=== PATIENT | male | born 1995 | race African-American/Black ===

== ENCOUNTER 2018-08-11 17:13 | Emergency (ER) | payer SELFPAY ==
--- NOTE | 2018-08-11 19:22 | RAD REPORT ---
EXAM DESCRIPTION: RAD - Knee Right 3 View - 08/11/2018 7:05 pm CLINICAL HISTORY: knee pain COMPARISON: Knee Right 3 View dated 02/07/2017 FINDINGS: No bone or joint abnormality is detected.
--- NOTE | 2018-08-11 19:34 | ER ---
Nurse's Notes [facility] Name: Jero Willingham Jr Age: 22 yrs Sex: Male : 1995 Arrival Date: 08/11/2018 Time: 17:17 Bed 20 Private MD: Diagnosis: Internal derangement of knee Presentation: 08/11 17:24 Presenting complaint: Patient states: i was working out when i heard a popped on my R hj knee; pain is 8/10; denies swelling;. Transition of care: patient was not received from another setting of care. Onset of symptoms was August 11, 2018. Risk Assessment: Do you want to hurt yourself or someone else? Patient reports no desire to harm self or others. Initial Sepsis Screen: Does the patient meet any 2 criteria? No. Patient's initial sepsis screen is negative. Does the patient have a suspected source of infection? No. Patient's initial sepsis screen is negative. Care prior to arrival: None. 17:24 Method Of Arrival: Ambulatory 17:24 Acuity: PADMINI 4 hj Triage Assessment: 17:26 General: Appears in no apparent distress. uncomfortable, Behavior is calm, cooperative, hj appropriate for age. Pain: Complains of pain in right knee. Historical: - Allergies: 17:25 No Known Allergies; hj - Home Meds: 17:25 None [Active]; hj - PMHx: 17:25 None; hj - PSHx: 17:25 None; hj - Immunization history:: Adult Immunizations not up to date. - Social history:: Smoking status: Patient/guardian denies using tobacco, Patient uses alcohol. - Ebola Screening: : Patient negative for fever greater than or equal to 101.5 degrees Fahrenheit, and additional compatible Ebola Virus Disease symptoms Patient denies exposure to infectious person Patient denies travel to an Ebola-affected area in the 21 days before illness onset. Screenin:25 Abuse screen: Denies threats or abuse. Denies injuries from another. Nutritional hj screening: No deficits noted. Tuberculosis screening: No symptoms or risk factors identified. Fall Risk None identified. Assessment: 18:12 General: Appears in no apparent distress. comfortable, Behavior is calm, cooperative, aj appropriate for age. Pain: Complains of pain in right leg and right knee. Neuro: Level of Consciousness is awake, alert, obeys commands, Oriented to person, place, time, situation, Appropriate for age. Respiratory: Airway is patent Respiratory effort is even, unlabored, Respiratory pattern is regular, symmetrical. Derm: Skin is intact, is healthy with good turgor, Skin is pink, warm \T\ dry. normal. Musculoskeletal: Range of motion: intact in all extremities, Swelling present in right knee Reports pain in right leg and right knee. 19:45 Reassessment: Patient appears in no apparent distress at this time. No changes from jd3 previously documented assessment. Patient and/or family updated on plan of care and expected duration. Pain level reassessed. Patient is alert, oriented x 3, equal unlabored respirations, skin warm/dry/pink. Vital Signs: 17:26 BP 168 / 96; Pulse 84; Resp 18; Temp 98.1(O); Pulse Ox 98% on R/A; Weight 124.74 kg; hj Height 5 ft. 11 in. (180.34 cm); Pain 8/10; 19:45 Pulse 85; Resp 16 S; Pulse Ox 98% on R/A; jd3 17:26 Body Mass Index 38.35 (124.74 kg, 180.34 cm) ED Course: 17:17 Patient arrived in ED. mr 17:25 Triage completed. 17:26 Arm band placed on left wrist. 17:26 Patient has correct armband on for positive identification. Bed in low position. Call light in reach. Side rails up X 1. 17:45 Jade Starr, RN is Primary Nurse. aj 17:50 Camron Gaming PA is PHCP. [facility] 17:50 Jason Hamm MD is Attending Physician. [facility] 18:12 No provider procedures requiring assistance completed. Patient did not have IV access aj during this emergency room visit. 19:05 Knee Right 3 View XRAY In Process Unspecified. EDMS 19:34 Yong Siddiqui MD is Referral Physician. [facility] Administered Medications: No medications were administered Outcome: 19:34 Discharge ordered by . [facility] 19:44 Discharged to home ambulatory, with family. jd3 19:44 Condition: stable 19:44 Discharge instructions given to patient, family, Instructed on discharge instructions, follow up and referral plans. medication usage, Demonstrated understanding of instructions, follow-up care, medications, Prescriptions given X 1. 19:46 Patient left the ED. jd3 Signatures: Dispatcher [employer] Jade Cunningham, NAVEED RN Camron Márquez PA PA jmm Rivera, Mary mr Teddy Goff RN RN Yony Nair RN RN jd3 Corrections: (The following items were deleted from the chart) 17:29 17:26 Pulse 84bpm; Resp 18bpm; Pulse Ox 98% RA; Temp 98.1F Oral; 124.74 kg; Height 5 hj ft. 11 in.; BMI: 38.3; Pain 8/10; hj
--- NOTE | 2018-08-11 19:34 | EDPHYS ---
Physician Documentation [facility] Name: Jero Willingham Jr Age: 22 yrs Sex: Male : 1995 Arrival Date: 08/11/2018 Time: 17:17 Bed 20 Private MD: ED Physician Jason Hamm HPI: 08/11 18:10 This 22 yrs old Black Male presents to ER via Ambulatory with complaints of Knee Pain. jmm 18:10 The patient presents with an injury, pain, that is acute. Onset: The symptoms/episode jmm began/occurred acutely, 1 day(s) ago. Modifying factors: The symptoms are alleviated by nothing. the symptoms are aggravated by nothing. This is a 22 year old male with no chronic medical conditions that presents to the ED with right knee pain after he felt a pop while jumping. Patient denies other injury. Historical: - Allergies: 17:25 No Known Allergies; hj - Home Meds: 17:25 None [Active]; hj - PMHx: 17:25 None; hj - PSHx: 17:25 None; hj - Immunization history:: Adult Immunizations not up to date. - Social history:: Smoking status: Patient/guardian denies using tobacco, Patient uses alcohol. - Ebola Screening: : Patient negative for fever greater than or equal to 101.5 degrees Fahrenheit, and additional compatible Ebola Virus Disease symptoms Patient denies exposure to infectious person Patient denies travel to an Ebola-affected area in the 21 days before illness onset. ROS: 18:10 Constitutional: Negative for fever, chills, and weight loss, Cardiovascular: Negative jmm for chest pain, palpitations, and edema, Respiratory: Negative for shortness of breath, cough, wheezing, and pleuritic chest pain. 18:10 MS/extremity: Positive for injury or acute deformity, laceration. 18:10 All other systems are negative. Exam: 18:10 Head/Face: atraumatic. Eyes: EOMI, no conjunctival erythema appreciated ENT: Moist jmm Mucus Membranes Neck: Trachea midline, Supple Chest/axilla: Normal chest wall appearance and motion. Cardiovascular: Regular rate and rhythm. No edema appreciated Respiratory: Normal respirations, no respiratory distress appreciated Abdomen/GI: Non distended, soft Back: Normal ROM 18:10 Constitutional: The patient appears in no acute distress, alert, awake. 18:10 Musculoskeletal/extremity: ROM: intact in all extremities, mild tenderness on palpation of the right patellar tendon, FROM appreciated, compartments are soft, NVI. 18:10 Skin: Appearance: Color: normal in color. 18:10 Neuro: Orientation: is normal, Mentation: is normal, Memory: is normal. 18:10 Psych: Behavior/mood is pleasant, cooperative. Vital Signs: 17:26 BP 168 / 96; Pulse 84; Resp 18; Temp 98.1(O); Pulse Ox 98% on R/A; Weight 124.74 kg; hj Height 5 ft. 11 in. (180.34 cm); Pain 8/10; 19:45 Pulse 85; Resp 16 S; Pulse Ox 98% on R/A; jd3 17:26 Body Mass Index 38.35 (124.74 kg, 180.34 cm) hj MDM: 18:08 Patient medically screened. [facility] 18:09 Data reviewed: vital signs, nurses notes. Counseling: I had a detailed discussion with [facility] the patient and/or guardian regarding: the historical points, exam findings, and any diagnostic results supporting the discharge/admit diagnosis. 19:33 Data reviewed: radiologic studies, plain films. Counseling: I had a detailed discussion [facility] with the patient and/or guardian regarding: radiology results, the need for outpatient follow up, to return to the emergency department if symptoms worsen or persist or if there are any questions or concerns that arise at home. 19:33 Data interpreted: Pulse oximetry: on room air is 98 %. Interpretation: normal. [facility] 08/11 18:08 Order name: Knee Right 3 View XRAY; Complete Time: 19:25 [facility] Administered Medications: No medications were administered Disposition: 08/12 09:55 Co-signature as Attending Physician, Jason Hamm MD. ma2 Disposition: 08/11/18 19:34 Discharged to Home. Impression: Internal derangement of knee. - Condition is Stable. - Discharge Instructions: Knee Pain. - Prescriptions for Ibuprofen 800 mg Oral Tablet - take 1 tablet by ORAL route every 8 hours As needed take with food; 30 tablet. - Medication Reconciliation Form, Thank You Letter, Antibiotic Education, Prescription Opioid Use, Work release form, Family Work Release form. - Follow up: Yong Siddiqui MD; When: 2 - 3 days; Reason: Recheck today's complaints, Continuance of care, Re-evaluation by your physician. Signatures: Dispatcher [employer] EDMS Camron Gaming PA PA jmm Joaquin, Henry, RN RN hj Davies, Jonathon, RN RN jJason Lyons MD MD ma2 Corrections: (The following items were deleted from the chart) 08/11 19:40 19:25 Knee Immobilizer ordered. saul kruse 19:46 19:34 08/11/2018 19:34 Discharged to Home. Impression: Internal derangement of knee. jd3 Condition is Stable. Forms are Medication Reconciliation Form, Thank You Letter, Antibiotic Education, Prescription Opioid Use. Follow up: Yong Siddiqui; When: 2 - 3 days; Reason: Recheck today's complaints, Continuance of care, Re-evaluation by your physician. saul
== END 2018-08-11 19:46 | disposition home or self-care (01) ==
LOC: ER 17:13
DX: M23.91 Unspecified internal derangement of right knee (principal); X58.XXXA Exposure to other specified factors, initial encounter; Y93.89 Activity, other specified; Y92.9 Unspecified place or not applicable
CPT/HCPCS: 99283

== ENCOUNTER 2019-05-22 19:37 | Emergency (ER) | payer SELFPAY ==
--- NOTE | 2019-05-22 20:53 | EDPHYS ---
Physician Documentation [facility] Name: Jero Willingham Jr Age: 23 yrs Sex: Male : 1995 Arrival Date: 05/22/2019 Time: 19:41 Bed 24 Private MD: MARCELINO Physician Federico Fontanez HPI: 05/22 20:46 This 23 yrs old Black Male presents to ER via Ambulatory with complaints of Ingrown noe toenail. 20:46 This 23 yrs old Black Male presents to ER via Ambulatory with complaints of Ingrown noe toenail. 20:46 The patient presents with pain, swelling, tenderness. The complaints affect the left noe foot, Left first toenail. Context: The problem was sustained at an unknown location. Onset: The symptoms/episode began/occurred 3 day(s) ago. Associated signs and symptoms: The patient has no apparent associated signs or symptoms. The patient has not experienced similar symptoms in the past. Historical: - Allergies: 19:49 No Known Allergies; ak1 - Home Meds: 19:49 None [Active]; ak1 - PMHx: 19:49 None; ak1 - PSHx: 19:49 None; ak1 - Immunization history:: Adult Immunizations unknown. - Social history:: Smoking status: Patient/guardian denies using tobacco. - Ebola Screening: : No symptoms or risks identified at this time. - Family history:: not pertinent. ROS: 20:46 MS/extremity: Positive for pain, swelling, tenderness, of the Left first toenail. noe 20:46 Constitutional: Negative for fever, chills, and weight loss, Eyes: Negative for injury, pain, redness, and discharge, ENT: Negative for injury, pain, and discharge, Neck: Negative for injury, pain, and swelling, Cardiovascular: Negative for chest pain, palpitations, and edema, Respiratory: Negative for shortness of breath, cough, wheezing, and pleuritic chest pain, Abdomen/GI: Negative for abdominal pain, nausea, vomiting, diarrhea, and constipation, Back: Negative for injury and pain, : Negative for injury, bleeding, discharge, and swelling, Skin: Negative for injury, rash, and discoloration, Neuro: Negative for headache, weakness, numbness, tingling, and seizure, Psych: Negative for depression, anxiety, suicide ideation, homicidal ideation, and hallucinations, Allergy/Immunology: Negative for hives, rash, and allergies, Endocrine: Negative for neck swelling, polydipsia, polyuria, polyphagia, and marked weight changes, Hematologic/Lymphatic: Negative for swollen nodes, abnormal bleeding, and unusual bruising. 20:46 MS/extremity: Positive for pain, swelling, tenderness, of the Left first toenail. Exam: 20:46 Constitutional: This is a well developed, well nourished patient who is awake, alert, noe and in no acute distress. Head/Face: Normocephalic, atraumatic. Eyes: Pupils equal round and reactive to light, extra-ocular motions intact. Lids and lashes normal. Conjunctiva and sclera are non-icteric and not injected. Cornea within normal limits. Periorbital areas with no swelling, redness, or edema. ENT: Nares patent. No nasal discharge, no septal abnormalities noted. Tympanic membranes are normal and external auditory canals are clear. Oropharynx with no redness, swelling, or masses, exudates, or evidence of obstruction, uvula midline. Mucous membranes moist. Neck: Trachea midline, no thyromegaly or masses palpated, and no cervical lymphadenopathy. Supple, full range of motion without nuchal rigidity, or vertebral point tenderness. No Meningismus. Chest/axilla: Normal chest wall appearance and motion. Nontender with no deformity. No lesions are appreciated. Cardiovascular: Regular rate and rhythm with a normal S1 and S2. No gallops, murmurs, or rubs. Normal PMI, no JVD. No pulse deficits. Respiratory: Lungs have equal breath sounds bilaterally, clear to auscultation and percussion. No rales, rhonchi or wheezes noted. No increased work of breathing, no retractions or nasal flaring. Abdomen/GI: Soft, non-tender, with normal bowel sounds. No distension or tympany. No guarding or rebound. No evidence of tenderness throughout. Back: No spinal tenderness. No costovertebral tenderness. Full range of motion. Male : Normal genitalia with no discharge or lesions. Skin: Warm, dry with normal turgor. Normal color with no rashes, no lesions, and no evidence of cellulitis. Neuro: Awake and alert, GCS 15, oriented to person, place, time, and situation. Cranial nerves II-XII grossly intact. Motor strength 5/5 in all extremities. Sensory grossly intact. Cerebellar exam normal. Normal gait. Psych: Awake, alert, with orientation to person, place and time. Behavior, mood, and affect are within normal limits. 20:46 Musculoskeletal/extremity: Extremities: decreased ROM, erythema, pain, swelling, tenderness, DVT Exam: No signs of deep vein thrombosis. no pain, no swelling, no tenderness, negative Homans' sign noted on exam, no appreciated bluish discoloration, no erythema, no increased warmth. Vital Signs: 19:49 BP 170 / 98; Pulse 87; Resp 18; Temp 98.1; Pulse Ox 99% on R/A; Weight 131.54 kg; ak1 Height 5 ft. 11 in. (180.34 cm); Pain 11/07; 21:47 BP 163 / 93; Pulse 80; Resp 18; Temp 98; Pulse Ox 100% on R/A; mg2 19:49 Body Mass Index 40.45 (131.54 kg, 180.34 cm) ak1 Procedures: 20:50 I \T\ D: Incision and drainage was performed for an abscess of the left Left first [facility] toenail Prepped with Betadine, Anesthetized with 4 ml's 1% Lidocaine. Incised with siccisors. Packed with xeroform gauze. Dressing: non-Adherent dressing, the patient tolerated the procedure well. MDM: 19:51 Patient medically screened. [facility] Administered Medications: 21:45 Drug: Marcaine (0.5 %) 10 ml {Note: by the provider.} Volume: 10 ml; Route: mg2 Infiltration; 21:45 Drug: Lidocaine (1 %) 1 amp Volume: 5 ml; Route: Infiltration; mg2 Disposition: 05/22/19 20:52 Discharged to Home. Impression: Ingrowing nail - revised. - Condition is Stable. - Discharge Instructions: Ingrown Toenail, Fingernail or Toenail Removal, Adult. - Prescriptions for Keflex 500 mg Oral Capsule - take 1 capsule by ORAL route every 6 hours for 7 days; 28 capsule. Tylenol- Codeine #3 300-30 mg Oral Tablet - take 2 tablets by ORAL route every 6 hours As needed; 20 tablet. - Medication Reconciliation Form, Thank You Letter, Antibiotic Education, Prescription Opioid Use form. - Follow up: Private Physician; When: 2 - 3 days; Reason: Recheck today's complaints, Continuance of care, Re-evaluation by your physician. Follow up: Tanner Dacosta DPM; When: 2 - 3 days; Reason: Recheck today's complaints, Re-evaluation by your physician. - Problem is new. - Symptoms have improved. Signatures: Federico Fontanez MD MD cha Krenek, Amber RN RN ak1 Fernando Arriaza RN RN mg2 Corrections: (The following items were deleted from the chart) 22:04 20:52 05/22/2019 20:52 Discharged to Home. Impression: Ingrowing nail - revised. mg2 Condition is Stable. Forms are Medication Reconciliation Form, Thank You Letter, Antibiotic Education, Prescription Opioid Use. Follow up: Private Physician; When: 2 - 3 days; Reason: Recheck today's complaints, Continuance of care, Re-evaluation by your physician. Follow up: Dr. Tanner Dacosta; When: 2 - 3 days; Reason: Recheck today's complaints, Re-evaluation by your physician. Problem is new. Symptoms have improved. noe
--- NOTE | 2019-05-22 20:53 | ER ---
Nurse's Notes [facility] Name: Jero Willingham Jr Age: 23 yrs Sex: Male : 1995 Arrival Date: 05/22/2019 Time: 19:41 Bed 24 Private MD: Diagnosis: Ingrowing nail-revised Presentation: 05/22 19:48 Presenting complaint: Patient states: left great toe pain with ingrown toenail X1.5 ak1 weeks [employer]. Transition of care: patient was not received from another setting of care. Onset of symptoms is unknown. Risk Assessment: Do you want to hurt yourself or someone else? Patient reports no desire to harm self or others. Initial Sepsis Screen: Does the patient meet any 2 criteria? No. Patient's initial sepsis screen is negative. Does the patient have a suspected source of infection? No. Patient's initial sepsis screen is negative. Care prior to arrival: None. 19:48 Method Of Arrival: Ambulatory ak1 19:48 Acuity: PADMINI 4 ak1 Triage Assessment: 19:49 General: Appears in no apparent distress. ak1 Historical: - Allergies: 19:49 No Known Allergies; ak1 - Home Meds: 19:49 None [Active]; ak1 - PMHx: 19:49 None; ak1 - PSHx: 19:49 None; ak1 - Immunization history:: Adult Immunizations unknown. - Social history:: Smoking status: Patient/guardian denies using tobacco. - Ebola Screening: : No symptoms or risks identified at this time. - Family history:: not pertinent. Screenin:49 Abuse screen: Denies threats or abuse. Denies injuries from another. Nutritional ak1 screening: No deficits noted. Tuberculosis screening: No symptoms or risk factors identified. Fall Risk None identified. Assessment: 20:18 General: Appears in no apparent distress. comfortable, Behavior is calm, cooperative. mg2 Pain: Complains of pain in left big toe Pain does not radiate. Pain currently is 2 out of 10 on a pain scale. Quality of pain is described as aching, Pain began gradually, 1.5 weeks ago Is intermittent. Neuro: Level of Consciousness is awake, alert, obeys commands, Oriented to person, place, time, situation. Cardiovascular: Capillary refill < 3 seconds Patient's skin is warm and dry. Respiratory: Airway is patent Respiratory effort is even, unlabored, Respiratory pattern is regular, symmetrical. GI: No signs and/or symptoms were reported involving the gastrointestinal system. : No signs and/or symptoms were reported regarding the genitourinary system. EENT: No signs and/or symptoms were reported regarding the EENT system. Derm: Skin is pink, warm \T\ dry. normal, Abscess located on left big toe. Musculoskeletal: Circulation, motion, and sensation intact. Capillary refill < 3 seconds, Swelling present in left big toe. 22:03 Reassessment: patient refused for post op shoe. mg2 Vital Signs: 19:49 BP 170 / 98; Pulse 87; Resp 18; Temp 98.1; Pulse Ox 99% on R/A; Weight 131.54 kg; ak1 Height 5 ft. 11 in. (180.34 cm); Pain /10; 21:47 BP 163 / 93; Pulse 80; Resp 18; Temp 98; Pulse Ox 100% on R/A; mg2 19:49 Body Mass Index 40.45 (131.54 kg, 180.34 cm) ak1 ED Course: 19:41 Patient arrived in ED. mr 19:48 Triage completed. ak1 19:49 Arm band placed on Patient placed in an exam room, on a stretcher, Patient notified of ak1 wait time. 19:51 Federico Fontanez MD is Attending Physician. noe 19:57 Fernando Arriaza, RN is Primary Nurse. mg2 20:07 Patient maintains SpO2 saturation greater than 95% on room air. jp3 20:08 Bed in low position. Call light in reach. Verbal reassurance given. Cardiac monitoring jp3 not applicable on this patient. 20:18 Patient did not have IV access during this emergency room visit. mg2 20:52 Tanner Dacosta DPM is Referral Physician. noe 21:46 Assist provider with I \T\ D: of an abscess on left paronychia/great toe Set up I\T\D tray. mg 2 Performed by Federico Fontanez MD Dressing with 4X4s, Patient tolerated well. Administered Medications: 21:45 Drug: Marcaine (0.5 %) 10 ml {Note: by the provider.} Volume: 10 ml; Route: mg2 Infiltration; 21:45 Drug: Lidocaine (1 %) 1 amp Volume: 5 ml; Route: Infiltration; mg2 Outcome: 20:52 Discharge ordered by . noe 22:03 Discharged to home ambulatory. mg2 22:03 Discharge instructions given to patient, Instructed on discharge instructions, follow up and referral plans. medication usage, wound care, Demonstrated understanding of instructions, follow-up care, medications, wound care, Prescriptions given X 2. 22:03 Condition: good mg2 22:04 Patient left the ED. mg2 Signatures: Federico Fontanez MD MD cha Rivera, Mary mr Diane Mora RN RN ak1 Fernando Arriaza RN RN mg2 Stef Rodarte jp3 Corrections: (The following items were deleted from the chart) 21:46 21:46 Assist provider with I \T\ D: of an abscess on left paronychia/great toe mg2 mg2 22:02 21:46 post op shoe applied to the left foot mg2 mg2
[2019-05-22] MEDS ORDERED: LIDOCAINE 1% MPF 5 ML VIAL ONE ×2 (20:55→21:48)
[2019-05-22] MEDS ORDERED: BUPIVACAINE 0.5% PF 10 ML VIAL ONE (20:55)
[2019-05-22] MEDS ORDERED: SILVER NITRATE 1 APPL TOP ONE (22:02)
== END 2019-05-22 22:04 | disposition home or self-care (01) ==
LOC: ER 19:37
PROC: 0J9R0ZZ Drainage of Left Foot Subcutaneous Tissue and Fascia, Open Approach (ICD-10-PCS; principal; 2019-05-22)
DX: L60.0 Ingrowing nail (principal)
CPT/HCPCS: 99284

== ENCOUNTER 2019-08-27 11:41 | Emergency (ER) | payer SELFPAY ==
[2019-08-27] MEDS ORDERED: IPRATROPIUM BROM 0.5MG/2.5ML ONE (12:45)
[2019-08-27] MEDS ORDERED: ALBUTEROL 2.5 MG/3 ML NEB SOL ONE (12:45)
--- NOTE | 2019-08-27 13:24 | RAD REPORT ---
EXAM DESCRIPTION: RAD - Chest Pa And Lat (2 Views) - 08/27/2019 1:18 pm CLINICAL HISTORY: Cough;Dyspnea Chest pain. COMPARISON: CHEST SINGLE VIEW dated 08/20/2013 FINDINGS: The lungs are clear. The heart is normal in size. No displaced fractures. IMPRESSION: No acute or concerning finding suspected.
--- NOTE | 2019-08-27 13:34 | EDPHYS ---
Physician Documentation [facility] Name: Jero Willingham Jr Age: 23 yrs Sex: Male : 1995 Arrival Date: 08/27/2019 Time: 11:43 Bed 27 Private MD: ED Physician Federico Fontanez HPI: 08/27 13:29 This 23 yrs old Black Male presents to ER via Ambulatory with complaints of Cough, kb Breathing Difficulty. 13:29 The patient has not experienced similar symptoms in the past. The patient has not kb recently seen a physician. 13:30 The patient has shortness of breath at rest. Onset: The symptoms/episode began/occurred kb 1 month(s) ago. Duration: The symptoms are continuous. The patient's shortness of breath is aggravated by nothing, is alleviated by nothing. Associated signs and symptoms: The patient has no apparent associated signs or symptoms. Severity of symptoms: At their worst the symptoms were mild moderate in the emergency department the symptoms are unchanged. Pt reports shortness of breath that started a month ago and has been getting progressively worse. Reports history of asthma, but hasn't used anything for that in a long time. Historical: - Allergies: 12:09 No Known Allergies; aa5 - Home Meds: 12:09 None [Active]; aa5 - PMHx: 12:12 Asthma; aa5 - PSHx: 12:09 None; aa5 - Immunization history:: Flu vaccine is not up to date. - Social history:: Smoking status: Patient/guardian denies using tobacco. - Ebola Screening: : No symptoms or risks identified at this time. ROS: 13:28 Constitutional: Negative for fever, chills, and weight loss, ENT: Negative for injury, kb pain, and discharge, Neck: Negative for injury, pain, and swelling, Cardiovascular: Negative for chest pain, palpitations, and edema, Abdomen/GI: Negative for abdominal pain, nausea, vomiting, diarrhea, and constipation, Back: Negative for injury and pain, MS/Extremity: Negative for injury and deformity, Skin: Negative for injury, rash, and discoloration, Neuro: Negative for headache, weakness, numbness, tingling, and seizure. 13:28 Respiratory: Positive for shortness of breath. Exam: 13:28 Constitutional: This is a well developed, well nourished patient who is awake, alert, kb and in no acute distress. Head/Face: Normocephalic, atraumatic. ENT: Nares patent. No nasal discharge, no septal abnormalities noted. Tympanic membranes are normal and external auditory canals are clear. Oropharynx with no redness, swelling, or masses, exudates, or evidence of obstruction, uvula midline. Mucous membranes moist. Neck: Trachea midline, no thyromegaly or masses palpated, and no cervical lymphadenopathy. Supple, full range of motion without nuchal rigidity, or vertebral point tenderness. No Meningismus. Chest/axilla: Normal chest wall appearance and motion. Nontender with no deformity. No lesions are appreciated. Cardiovascular: Regular rate and rhythm with a normal S1 and S2. No gallops, murmurs, or rubs. Normal PMI, no JVD. No pulse deficits. Respiratory: Lungs have equal breath sounds bilaterally, clear to auscultation and percussion. No rales, rhonchi or wheezes noted. No increased work of breathing, no retractions or nasal flaring. Abdomen/GI: Soft, non-tender, with normal bowel sounds. No distension or tympany. No guarding or rebound. No evidence of tenderness throughout. Back: No spinal tenderness. No costovertebral tenderness. Full range of motion. Skin: Warm, dry with normal turgor. Normal color with no rashes, no lesions, and no evidence of cellulitis. MS/ Extremity: Pulses equal, no cyanosis. Neurovascular intact. Full, normal range of motion. Neuro: Awake and alert, GCS 15, oriented to person, place, time, and situation. Cranial nerves II-XII grossly intact. Motor strength 5/5 in all extremities. Sensory grossly intact. Cerebellar exam normal. Normal gait. Vital Signs: 12:10 BP 172 / 94; Pulse 102; Resp 18 S; Temp 98.0(TE); Pulse Ox 98% on R/A; Weight 131.54 kg aa5 (R); Height 5 ft. 11 in. (180.34 cm) (R); Pain 0/10; 13:48 BP 150 / 78; Pulse 110; Resp 18; Temp 98.5(O); Pulse Ox 100% on R/A; mg2 12:10 Body Mass Index 40.45 (131.54 kg, 180.34 cm) aa5 MDM: 12:11 Patient medically screened. kb 13:29 Data reviewed: vital signs, nurses notes. Data interpreted: Pulse oximetry: on room air kb is 98 %. Interpretation: normal. 13:31 Counseling: I had a detailed discussion with the patient and/or guardian regarding: the kb historical points, exam findings, and any diagnostic results supporting the discharge/admit diagnosis, radiology results, the need for outpatient follow up, a family practitioner, to return to the emergency department if symptoms worsen or persist or if there are any questions or concerns that arise at home. 13:32 ED course: Pt reports symptoms are better after neb treatment. . kb 08/27 12:14 Order name: Chest Pa And Lat (2 Views) XRAY; Complete Time: 13:28 kb Administered Medications: 12:59 Drug: DuoNeb (3:1) (2.5 mg - 0.5 mg) 3 ml Route: Nebulizer; mg2 13:30 Follow up: Response: No adverse reaction; Marked relief of symptoms mg2 Disposition: 08/28 07:25 Co-signature as Attending Physician, Federico Fontanez MD I agree with the assessment and [facility] plan of care. Disposition: 08/27/19 13:33 Discharged to Home. Impression: Dyspnea. - Condition is Stable. - Discharge Instructions: Shortness of Breath, [id number], Asthma, Adult, [id number]. - Prescriptions for Albuterol Sulfate 90 mcg/actuation - inhale 1-2 puff by INHALATION route every 4-6 hours; 1 Inhaler. - Medication Reconciliation Form, Thank You Letter, Antibiotic Education, Prescription Opioid Use, Work release form form. - Follow up: Emergency Department; When: As needed; Reason: Worsening of condition. Follow up: Private Physician; When: 2 - 3 days; Reason: Recheck today's complaints, Continuance of care, Re-evaluation by your physician. Signatures: Dispatcher [employer] Estephania De La Fuente, HEALTHCARE ARCHITECT-C RAMIREZ-Federico Juarez MD MD cha Calderon, Audri, RN RN [email or web address] Fernando Arriaza RN RN mg2 Corrections: (The following items were deleted from the chart) 08/27 12:12 12:09 PMHx: None; aaАндрей curtis 13:52 13:33 08/27/2019 13:33 Discharged to Home. Impression: Dyspnea. Condition is Stable. mg2 Forms are Medication Reconciliation Form, Thank You Letter, Antibiotic Education, Prescription Opioid Use. Follow up: Emergency Department; When: As needed; Reason: Worsening of condition. Follow up: Private Physician; When: 2 - 3 days; Reason: Recheck today's complaints, Continuance of care, Re-evaluation by your physician. kb
--- NOTE | 2019-08-27 13:34 | ER ---
Nurse's Notes [facility] Name: Jero Willingham Jr Age: 23 yrs Sex: Male : 1995 Arrival Date: 08/27/2019 Time: 11:43 Bed 27 Private MD: Diagnosis: Dyspnea Presentation: 08/27 12:08 Presenting complaint: Patient states: SOB and cough that began 1 month ago. Transition aa5 of care: patient was not received from another setting of care. Onset of symptoms was July 2019. Risk Assessment: Do you want to hurt yourself or someone else? Patient reports no desire to harm self or others. Initial Sepsis Screen: Does the patient meet any 2 criteria? No. Patient's initial sepsis screen is negative. Does the patient have a suspected source of infection? No. Patient's initial sepsis screen is negative. Care prior to arrival: None. 12:08 Acuity: PADMINI 3 aa5 12:08 Method Of Arrival: Ambulatory aa5 Historical: - Allergies: 12:09 No Known Allergies; aa5 - Home Meds: 12:09 None [Active]; aa5 - PMHx: 12:12 Asthma; aa5 - PSHx: 12:09 None; aa5 - Immunization history:: Flu vaccine is not up to date. - Social history:: Smoking status: Patient/guardian denies using tobacco. - Ebola Screening: : No symptoms or risks identified at this time. Screenin:33 Abuse screen: Denies threats or abuse. Denies injuries from another. Nutritional mg2 screening: No deficits noted. Tuberculosis screening: No symptoms or risk factors identified. Fall Risk None identified. Assessment: 13:00 General: Appears in no apparent distress. comfortable, Behavior is calm, cooperative. mg2 Pain: Denies pain. Neuro: Level of Consciousness is awake, alert, obeys commands, Oriented to person, place, time, situation. Cardiovascular: Rhythm is regular. 13:00 Respiratory: Airway is patent Respiratory effort is even, unlabored, Breath sounds with mg2 wheezes bilaterally. in mediastinum, right upper lobe and left upper lobe. Respiratory: Reports shortness of breath cough that is. GI: No signs and/or symptoms were reported involving the gastrointestinal system. : No signs and/or symptoms were reported regarding the genitourinary system. EENT: No signs and/or symptoms were reported regarding the EENT system. Derm: Skin is intact, is healthy with good turgor, Skin is pink, warm \T\ dry. normal. Musculoskeletal: Circulation, motion, and sensation intact. Capillary refill < 3 seconds. Vital Signs: 12:10 BP 172 / 94; Pulse 102; Resp 18 S; Temp 98.0(TE); Pulse Ox 98% on R/A; Weight 131.54 kg aa5 (R); Height 5 ft. 11 in. (180.34 cm) (R); Pain 0/10; 13:48 BP 150 / 78; Pulse 110; Resp 18; Temp 98.5(O); Pulse Ox 100% on R/A; mg2 12:10 Body Mass Index 40.45 (131.54 kg, 180.34 cm) aa5 ED Course: 11:43 Patient arrived in ED. jg7 12:08 Arm band placed on. aa5 12:09 Triage completed. aa5 12:11 Estephania Ledezma FNP-C is [facility]. kb 12:11 Federico Fontanez MD is Attending Physician. kb 12:42 Fernando Arriaza, NAVEED is Primary Nurse. mg2 13:18 Chest Pa And Lat (2 Views) XRAY In Process Unspecified. EDMS 13:33 Patient has correct armband on for positive identification. mg2 13:33 No provider procedures requiring assistance completed. Patient did not have IV access mg2 during this emergency room visit. Administered Medications: 12:59 Drug: DuoNeb (3:1) (2.5 mg - 0.5 mg) 3 ml Route: Nebulizer; mg2 13:30 Follow up: Response: No adverse reaction; Marked relief of symptoms mg2 Outcome: 13:33 Discharge ordered by . kb 13:47 Discharged to home ambulatory, with family. mg2 13:47 Condition: stable 13:47 Discharge instructions given to patient, family, Instructed on discharge instructions, follow up and referral plans. medication usage, Demonstrated understanding of instructions, follow-up care, medications, Prescriptions given X 1. 13:52 Patient left the ED. mg2 Signatures: Dispatcher [employer] EDMS Estephania Ledezma FNP-C FNP-Ckb Calderon, Audri, RN RN aa5 Fernando Arriaza RN RN mg2 Hilda Sorto jg7 Corrections: (The following items were deleted from the chart) 12:12 12:09 PMHx: None; aa5 aa5 12:12 12:10 Pulse 102bpm; Resp 18bpm; Spontaneous; Pulse Ox 98% RA; Temp 98.0F Temporal; aa5 131.54 kg Reported; Height 5 ft. 11 in. Reported; BMI: 40.4; Pain 0/10; aa5
[2019-08-27 13:58] VITALS: BP 150/78; TEMP 98.5; O2SAT 100
== END 2019-08-27 13:52 | disposition home or self-care (01) ==
LOC: ER 11:41
DX: R06.00 Dyspnea, unspecified (principal)
CPT/HCPCS: 71046; 94640; 99284

== ENCOUNTER 2021-11-07 09:54 | Emergency (ER) | payer BC, SELFPAY ==
--- NOTE | 2021-11-07 11:24 | RAD REPORT ---
EXAM DESCRIPTION: [place] Single View11/07/2021 11:00 am CLINICAL HISTORY: Chest pain COMPARISON: 2018 FINDINGS: The lungs appear clear of acute infiltrate. The heart is normal size IMPRESSION: No acute abnormalities displayed
[2021-11-07 11:28] LABS: Absolute Lymphocytes (CBC) 2.5 K/uL (0.7-4.9); Hematocrit 42.3 % (39.6-49.0); MPV 7.4 fL (7.6-11.3); RBC Red Blood Cell Count 5.05 M/uL (4.33-5.43)
[2021-11-07 11:44] LABS: BUN Blood Urea Nitrogen 13 mg/dL (7-18); Bicarbonate 25 mmol/L (21-32); Glucose Level 123 mg/dL (74-106); Sodium Level 137 mmol/L (136-145); Troponin (Emerg Dept Use Only) < 0.02 ng/mL (0.0-0.045)
--- NOTE | 2021-11-07 11:59 | ER ---
Nurse's Notes [facility] Name: Jero Willingham Jr Age: 26 yrs Sex: Male : 1995 Arrival Date: 11/07/2021 Time: 09:57 Bed 30 Private MD: Diagnosis: Chest pain, unspecified;Essential (primary) hypertension Presentation: 11/07 10:03 Chief complaint: Patient states: He wants to get checked out because he has been told ll3 he has high blood pressure, pt states having chest pain since yesterday morning. Coronavirus screen: At this time, the client does not indicate any symptoms associated with coronavirus-19. Ebola Screen: No symptoms or risks identified at this time. Initial Sepsis Screen: Does the patient meet any 2 criteria? No. Patient's initial sepsis screen is negative. Does the patient have a suspected source of infection? No. Patient's initial sepsis screen is negative. Risk Assessment: Do you want to hurt yourself or someone else? Patient reports no desire to harm self or others. Onset of symptoms was November 06, 2021. 10:03 Method Of Arrival: Ambulatory ll3 10:03 Acuity: PADMINI 3 ll3 Triage Assessment: 10:05 General: Appears in no apparent distress. comfortable, Behavior is calm, cooperative. ll3 Pain: Complains of pain in mid-sternal area Pain radiates to back Pain currently is 5 out of 10 on a pain scale. Historical: - Allergies: 10:05 No Known Allergies; ll3 - PMHx: 10:05 Asthma; Hypertensive disorder; ll3 - Immunization history:: Client reports receiving the 2nd dose of the Covid vaccine. - Social history:: Smoking status: Patient denies any tobacco usage or history of. Screenin:36 Abuse screen: Denies threats or abuse. Denies injuries from another. Nutritional ic1 screening: No deficits noted. Tuberculosis screening: No symptoms or risk factors identified. Fall Risk None identified. Exposure risk/Travel Screening: None identified. Assessment: 11:36 General: Appears in no apparent distress. comfortable, Behavior is calm, cooperative. ic1 Pain: Denies pain. Neuro: No deficits noted. Cardiovascular: Reports chest pain, since Occasionally, but not currently. Denies headache. States he was told he had htn when he was 16, but has never been medicated. Pt denies weakness, fatigue, and disorientation. Respiratory: No deficits noted. GI: No deficits noted. : No deficits noted. EENT: No deficits noted. Derm: No deficits noted. Musculoskeletal: No deficits noted. Vital Signs: 10:03 BP 179 / 125; Pulse 112; Resp 15; Temp 97.0(TE); Pulse Ox 100% on R/A; Weight 151.95 kg ll3 (R); Height 5 ft. 11 in. (180.34 cm) (R); Pain 5/10; 11:22 BP 190 / 94; Pulse 106; Pulse Ox 99% ; tp1 11:36 BP 164 / 94; Pulse 103; Resp 20; Pulse Ox 100% on R/A; ic1 10:03 Body Mass Index 46.72 (151.95 kg, 180.34 cm) ll3 Vitals: 11:36 Cardiac Rhythm Assessment Sinus tach. ic1 ED Course: 09:57 Patient arrived in ED. ds1 10:05 Triage completed. ll3 10:05 Arm band placed on Patient placed in an exam room. ll3 10:10 Estephania Ledezma FNP-C is PHCP. kb 10:10 Nir Harris MD is Attending Physician. kb 11:00 Chest Single View XRAY In Process Unspecified. EDMS 11:10 Inserted saline lock: 20 gauge in right antecubital area, using aseptic technique. tp1 Blood collected. 11:11 Troponin (emerg Dept Use Only) Sent. tp1 11:11 Basic Metabolic Panel Sent. tp1 11:11 Initial lab(s) drawn, by nm, sent to lab. tp1 11:11 EKG done, by ED staff. tp1 11:36 Patient has correct armband on for positive identification. Bed in low position. Call ic1 light in reach. Side rails up X2. Administered Medications: No medications were administered Outcome: 11:59 Discharge ordered by . kb 12:08 Discharged to home ambulatory. ic1 12:08 Condition: stable 12:08 Discharge instructions given to patient, Instructed on discharge instructions, follow up and referral plans. Demonstrated understanding of instructions, follow-up care, medications, Prescriptions given X 2. 12:11 Patient left the ED. jh5 Signatures: Dispatcher [employer] EDMS Estephania Ledezma FNP-C FNP-Ckb Sanford, Demi ds1 Hilda Brown, RN RN jh5 Vj Coronado, RN RN ll3 Gely Tomlin tp1 Blanche Mcgarry, RN RN ic1
--- NOTE | 2021-11-07 12:00 | EDPHYS ---
Physician Documentation [facility] Name: Jero Willingham Jr Age: 26 yrs Sex: Male : 1995 Arrival Date: 11/07/2021 Time: 09:57 Bed 30 Private MD: ED Physician Nir Harris HPI: 11/07 10:56 This 26 yrs old Black Male presents to ER via Ambulatory with complaints of Chest Pain. kb 10:56 The patient or guardian reports chest pain that is located primarily in the substernal kb area. The pain does not radiate. Associated signs and symptoms: Pertinent positives: HTN, Pertinent negatives: dizziness, lightheadedness, nausea, palpitations, shortness of breath. The chest pain is described as dull. Duration: The patient or guardian reports a single episode. Modifying factors: The symptoms are alleviated by nothing. the symptoms are aggravated by nothing. Severity of pain: At its worst the pain was mild moderate in the emergency department the pain is unchanged. The patient has not experienced similar symptoms in the past. The patient has not recently seen a physician. Pt states he came in because his blood pressure was high. States he has had pain to center of chest for 2 days. Denies any other symptoms. States he has a history of hypertension, but does not take anything for it. . Historical: - Allergies: 10:05 No Known Allergies; ll3 - PMHx: 10:05 Asthma; Hypertensive disorder; ll3 - Immunization history:: Client reports receiving the 2nd dose of the Covid vaccine. - Social history:: Smoking status: Patient denies any tobacco usage or history of. ROS: 10:56 Constitutional: Negative for fever, chills, and weight loss. kb 10:56 Cardiovascular: Positive for chest pain, Negative for edema, orthopnea, palpitations, paroxysmal nocturnal dyspnea. 10:56 All other systems are negative. Exam: 10:56 Constitutional: This is a well developed, well nourished patient who is awake, alert, kb and in no acute distress. Head/Face: Normocephalic, atraumatic. ENT: Moist Mucous membranes Cardiovascular: Regular rate and rhythm with a normal S1 and S2. No gallops, murmurs, or rubs. No pulse deficits. Respiratory: Respirations even and unlabored. No increased work of breathing. Talking in full sentences Skin: Warm, dry with normal turgor. Normal color. MS/ Extremity: Pulses equal, no cyanosis. Neurovascular intact. Full, normal range of motion. Neuro: Awake and alert, GCS 15, oriented to person, place, time, and situation. Moves all extremities. Normal gait. Psych: Awake, alert, with orientation to person, place and time. Behavior, mood, and affect are within normal limits. Vital Signs: 10:03 BP 179 / 125; Pulse 112; Resp 15; Temp 97.0(TE); Pulse Ox 100% on R/A; Weight 151.95 kg ll3 (R); Height 5 ft. 11 in. (180.34 cm) (R); Pain 5/10; 11:22 BP 190 / 94; Pulse 106; Pulse Ox 99% ; tp1 11:36 BP 164 / 94; Pulse 103; Resp 20; Pulse Ox 100% on R/A; ic1 10:03 Body Mass Index 46.72 (151.95 kg, 180.34 cm) ll3 MDM: 10:10 Patient medically screened. kb 10:54 Data reviewed: vital signs, nurses notes. Data interpreted: Pulse oximetry: on room air kb is 100 %. Interpretation: normal. 11:59 Counseling: I had a detailed discussion with the patient and/or guardian regarding: the kb historical points, exam findings, and any diagnostic results supporting the discharge/admit diagnosis, lab results, radiology results, the need for outpatient follow up, a family practitioner, to return to the emergency department if symptoms worsen or persist or if there are any questions or concerns that arise at home. 11/07 10:17 Order name: Troponin (emerg Dept Use Only); Complete Time: 11:46 kb 11/07 10:17 Order name: CBC with Diff; Complete Time: 11:46 kb 11/07 10:17 Order name: Chest Single View XRAY; Complete Time: 11:29 kb 11/07 10:17 Order name: Basic Metabolic Panel; Complete Time: 11:46 kb 11/07 10:17 Order name: EKG; Complete Time: 10:18 kb 11/07 10:17 Order name: EKG - Nurse/Tech; Complete Time: 11:11 kb 11/07 10:17 Order name: IV Start; Complete Time: 11:11 kb 11/07 10:24 Order name: Recheck B/P; Complete Time: 11:31 kb Administered Medications: No medications were administered Disposition: 13:13 Co-signature as Attending Physician, Nir Harris MD I agree with the assessment and rn plan of care. Attestation: The patient's history, exam findings, diagnostics, and a summary of any interventions or procedures was reviewed in detail with Estephania SANTACRUZ. Disposition Summary: 11/07/21 11:59 Discharge Ordered Location: Home kb Condition: Stable kb Diagnosis - Chest pain, unspecified kb - Essential (primary) hypertension kb Followup: kb - With: Emergency Department - When: As needed - Reason: Worsening of condition Followup: kb - With: Private Physician - When: 2 - 3 days - Reason: Recheck today's complaints, Continuance of care, Re-evaluation by your physician Discharge Instructions: - Discharge Summary Sheet kb - Nonspecific Chest Pain, Adult, [id number] kb - Hypertension, Adult, [id number] kb Forms: - Medication Reconciliation Form kb - Thank You Letter kb - Antibiotic Education kb - Prescription Opioid Use kb Prescriptions: - Hydrochlorothiazide 25 mg Oral Tablet - take 1 tablet by ORAL route once daily .; 30 tablet; Refills: 0, Product kb Selection Permitted Signatures: Dispatcher [employer] EDMS Estephania Ledezma, NOAM RYANP-Nir Zavala MD MD rn Loubet, Lynsea, RN RN ll3
[2021-11-07 12:17] VITALS: TEMP 97
[2021-11-07 12:24] VITALS: BP 164/94; O2SAT 100
--- NOTE | 2021-11-09 07:53 | EKG ---
Test Date: 2021-11-07 Test Time: 11:16:30 Commercial Decorator: MBB MEASUREMENT RESULTS: Intervals: Rate: 104 NJ: 138 QRSD: 80 QT: 340 QTc: 447 [place]: P: 54 NJ: 138 QRS: 69 T: -3 INTERPRETIVE STATEMENTS: Sinus tachycardia Septal infarct, age undetermined Abnormal ECG No previous ECG available for comparison Electronically Signed On 11-09-21 07:46:19 DIRECTOR OF UNDERGRADUATE ADMISSIONS by Darrell Prakash
== END 2021-11-07 12:11 | disposition home or self-care (01) ==
LOC: ER 09:54
DX: R07.9 Chest pain, unspecified (principal); I10 Essential (primary) hypertension
CPT/HCPCS: 36415; 71045; 80048; 84484; 85025; 93005; 99284

== ENCOUNTER 2022-02-20 11:39 | Emergency (ER) | payer BC, SELFPAY ==
--- OUTSIDE RECORDS SUMMARY | 2022-02-20 11:43 | XMS REPORT | Continuity of Care Document ---
:1995 Author Organization [facility] t Address [address] [place] [address] [address] [place] [address] Care Team Providers Name Role Phone Unavailable Unavailable Unavailable Problems This patient has no known problems. Allergies, Adverse Reactions, Alerts This patient has no known allergies or adverse reactions. Medications This patient has no known medications. Procedures This patient has no known procedures. Results Test Description Test Time Test Comments Results Result Comments Source SARS-CoV-2 (COVID-19), RT-PCR/TMA 2021-11-19 12:50:25 Test Item Value Reference Range Interpretation Comme nts SARS-CoV-2 INTERPRETATION POSITIVE SEE NOTE A S ARS-CoV-2 RNA DETECTEDPositive (test code = 56087) results are indicative of the presence of TOMI S-CoV-2 RNA;clinical co rrelation with patient history and other diagnosticinfor mation is necessary to de termine patient infection statu s.Positive results do not rule out bacterial infection or co -infectionwith other viruses. Positive and negative predic tive values oftesting are h ighly dependent on prevalence. SOURCE (test code = 00562) NOT SPECIFIED Note: Methodology is Keo Luis Eduardo Real-Time RT-PC R. The expected result or ref erence range is NEGATIVE (Not D etected). For more information reg arding COVID-19 testing to incl ude clinicalinforma tion, methodology detail, intende d use, FDA authorization a ndrecommended fact sheets for ted ents or healthcare providers, see NewTest Announcement: S ARS-CoV-2 (COVID-19) by N AAT at URL below (note,fact shee ts are provided by method given in report:https:// www.[employer]/cl inicians/client -communications/ Alternatively, see downloadable PDF fact sheet at:https://www. cpllabs.com/COVID- 19-RT-PCR UNLESS OTHERWISE INDICATED, ALL TESTING PERFORMED ATCLINICAL PATH [facility] [employer] [address] [place] [address] 4 LABORATORY DIRE CTOR: Kendell DUMONT NUMBER [id number] [place]. [id number] SARS-CoV-2 (COVID-19), RT-PCR/[id number] 17:21:35 Test Item Value Reference Interpretation Comments Range SARS-CoV-2 POSITIVE SEE NOTE A SARS-CoV-2 RNA INTERPRETATION DETECTEDPosit chadwick results (test code = [place] the [address]) presence of TOMI S-CoV-2 RNA;clinical co rrelation with patient hi story and other diagnosticinfor mation is necessary to de termine patient infecti on status.Positive results do not rule out bacterial infec tion or co-infectionwit h other viruses. Positi ve and negative predic tive values oftestin g are highly dependen t on prevalence. SOURCE (test code NASOPHARYNGEAL Note: M ethodology is = 83633) Keo Luis Eduardo Gi l-Time RT-PCR. The exp ected result or refe rence range is NEGATI VE (Not Detected). For more information reg arding COVID-19 testin g to include clinicalinforma tion, methodology det ail, intended use, F DA authorization andrecommended fact sheets for ted ents or healthcare prov iders, see NewTest Announcement: S ARS-CoV-2 (COVID-19) by N AAT at URL below (note ,fact sheets are prov ided by method given in report:https:// [email or web address]/[email or web address] [email or web address] -communications / Alternatively, see downloadable PD F fact sheet at:https://www. [employer].c om/LQZMN-58-HJ- PCR UNLESS OTHERWIS E INDICATED, ALL TESTING PERFORMED [facility] NICAL PATHOLOG[facility] [address] [place] [address] 4 LABORATORY DIR NATACHA: Kendell EARLYIA NUMBER [id number] CAP ACCREDITATION N O. [id number]
[2022-02-20 12:37] LABS: Absolute Lymphocytes (CBC) 2.6 K/uL (0.7-4.9); Lymphocytes % 29.4 % (15.3-44.8); RBC Red Blood Cell Count 4.96 M/uL (4.33-5.43)
[2022-02-20] MEDS ORDERED: hydroCHLOROthiazide 25 MG TAB ONE (12:38)
[2022-02-20 12:51] LABS: Potassium 3.9 mmol/L (3.5-5.1); Troponin High Sensitivity 5.8 pg/mL (<58.9)
[2022-02-20] MEDS ORDERED: HYDRALAZINE HCL 20 MG/ML VIAL ONE (13:42)
[2022-02-20] MEDS ORDERED: cloNIDine HCL 0.1 MG TAB ONE (14:12)
--- NOTE | 2022-02-20 14:42 | ER ---
Nurse's Notes [facility] Name: Jero Willingham Jr Age: 26 yrs Sex: Male : 1995 Arrival Date: 02/20/2022 Time: 11:42 Bed 11 Private MD: Diagnosis: Elevated blood-pressure reading, without diagnosis of hypertension Presentation: 02/20 11:53 Chief complaint: Patient states: ran out of BP meds last month, was taking iw hydrochlorothiazide , today he went to do a drug test for a job and was told hi BP was high and needed to get seen by a doctor. Coronavirus screen: At this time, the client does not indicate any symptoms associated with coronavirus-19. Ebola Screen: Patient negative for fever greater than or equal to 101.5 degrees Fahrenheit, and additional compatible Ebola Virus Disease symptoms Patient denies exposure to infectious person. Patient denies travel to an Ebola-affected area in the 21 days before illness onset. No symptoms or risks identified at this time. Initial Sepsis Screen: Does the patient meet any 2 criteria? No. Patient's initial sepsis screen is negative. Does the patient have a suspected source of infection? No. Patient's initial sepsis screen is negative. Risk Assessment: Do you want to hurt yourself or someone else? Patient reports no desire to harm self or others. Onset of symptoms was February 20, 2022. 11:53 Method Of Arrival: Ambulatory iw 11:53 Acuity: PADMINI 3 iw Historical: - Allergies: 11:56 No Known Allergies; iw - PMHx: 11:52 Asthma; Hypertensive disorder; iw Screenin:11 Abuse screen: Denies threats or abuse. Denies injuries from another. Nutritional iw screening: No deficits noted. Tuberculosis screening: No symptoms or risk factors identified. Fall Risk IV access (20 points). Assessment: 13:11 Reassessment: Patient appears in no apparent distress at this time. Patient and/or iw family updated on plan of care and expected duration. Pain level reassessed. Patient is alert, oriented x 3, equal unlabored respirations, skin warm/dry/pink. 13:43 Reassessment: Patient appears in no apparent distress at this time. Patient and/or iw family updated on plan of care and expected duration. Pain level reassessed. Patient is alert, oriented x 3, equal unlabored respirations, skin warm/dry/pink. Vital Signs: 11:52 BP 160 / 113; Pulse 92; Resp 18; Temp 97.4; Pulse Ox 99% on R/A; iw 12:58 BP 156 / 106; iw 13:32 BP 154 / 128 LA Supine (man/reg); dh4 13:43 BP 156 / 105; iw ED Course: 11:42 Patient arrived in ED. am2 11:46 Nir Harris MD is Attending Physician. rn 11:54 Triage completed. iw 11:58 Camron Gaming PA is PHCP. [facility] 11:58 Nir Harris MD is Attending Physician. [facility] 12:09 Mylene Lozada RN is Primary Nurse. iw 12:30 Inserted saline lock: 20 gauge in right antecubital area, using aseptic technique. dh4 Blood collected. 13:11 Patient has correct armband on for positive identification. iw Administered Medications: 12:38 Drug: Hydrochlorothiazide 25 mg Route: PO; iw 13:43 Drug: hydrALAZINE 5 mg Route: IVP; Site: right antecubital; iw 14:10 Drug: cloNIDine 0.1 mg Route: PO; iw Outcome: 14:41 Discharge ordered by . [facility] 14:57 Patient left the ED. iw Signatures: Camron Gaming PA PA [facility] Mylene Lozada RN RN Nir Harris MD MD rn Moreno, Amanda [facility] Tom Snyder 4 Corrections: (The following items were deleted from the chart) 11:53 11:52 Pulse 92bpm; Resp 18bpm; Pulse Ox 99% RA; Temp 97.4F; iw iw
--- NOTE | 2022-02-20 14:42 | EDPHYS ---
Physician Documentation [facility] Name: Jero Willingham Jr Age: 26 yrs Sex: Male : 1995 Arrival Date: 02/20/2022 Time: 11:42 Bed 11 Private MD: ED Physician Nir Harris HPI: 02/20 11:46 This 26 yrs old Black Male presents to ER via Ambulatory with complaints of High Blood jmm Pressure. 11:46 Onset: The symptoms/episode began/occurred at an unknown time. jmm 11:46 Modifying factors: The symptoms are aggravated by activity, The symptoms are alleviated jmm by. Associated signs and symptoms: Pertinent negatives: chest pain, dizziness, headache, nausea, vomiting. Is a 26-year-old male with history of asthma and hypertension the presents emerged department with complaints of elevated blood pressure. Patient states he has been out of his blood pressure medication. States he went to a job physical whom advised him to go to the ER for further evaluation due to elevated blood pressure. Patient has no complaints of headache, weakness, difficulty with urination, chest pain, shortness of breath.. Historical: - Allergies: 11:56 No Known Allergies; iw - PMHx: 11:52 Asthma; Hypertensive disorder; iw ROS: 11:46 Constitutional: Negative for fever, chills, and weight loss, Cardiovascular: Negative jmm for chest pain, palpitations, and edema, Respiratory: Negative for shortness of breath, cough, wheezing, and pleuritic chest pain, Back: Negative for injury and pain, Neuro: Negative for headache, weakness, numbness, tingling, and seizure. 11:46 All other systems are negative. Exam: 11:46 Constitutional: This is a well developed, well nourished patient who is awake, alert, jmm and in no acute distress. Head/Face: atraumatic. Eyes: EOMI, no conjunctival erythema appreciated ENT: Moist Mucus Membranes Neck: Trachea midline, Supple Chest/axilla: Normal chest wall appearance and motion. Cardiovascular: Regular rate and rhythm. No edema appreciated Respiratory: Normal respirations, no respiratory distress appreciated Abdomen/GI: Non distended, soft Back: Normal ROM Skin: General appearance color normal MS/ Extremity: Moves all extremities, no obvious deformities appreciated, no edema noted to the lower extremities Neuro: Awake and alert Psych: Behavior is normal, Mood is normal, Patient is cooperative and pleasant Vital Signs: 11:52 BP 160 / 113; Pulse 92; Resp 18; Temp 97.4; Pulse Ox 99% on R/A; iw 12:58 BP 156 / 106; iw 13:32 BP 154 / 128 LA Supine (man/reg); dh4 13:43 BP 156 / 105; iw MDM: 11:46 Patient medically screened. rn 14:41 Data reviewed: vital signs, nurses notes. Counseling: I had a detailed discussion with saul the patient and/or guardian regarding: the historical points, exam findings, and any diagnostic results supporting the discharge/admit diagnosis, lab results, the need for outpatient follow up, to return to the emergency department if symptoms worsen or persist or if there are any questions or concerns that arise at home. 02/20 12:07 Order name: CBC with Diff; Complete Time: 12:53 [facility] 02/20 12:07 Order name: BMP; Complete Time: 12:53 [facility] 02/20 12:07 Order name: Troponin High Sensitivity; Complete Time: 12:53 [facility] 02/20 12:07 Order name: Saline Lock; Complete Time: 12:31 [facility] 02/20 12:07 Order name: EKG - Nurse/Tech; Complete Time: 12:58 [facility] Administered Medications: 12:38 Drug: Hydrochlorothiazide 25 mg Route: PO; iw 13:43 Drug: hydrALAZINE 5 mg Route: IVP; Site: right antecubital; iw 14:10 Drug: cloNIDine 0.1 mg Route: PO; iw Disposition: 18:26 Co-signature as Attending Physician, Nir Harris MD. rn Disposition Summary: 02/20/22 14:41 Discharge Ordered Location: Home [facility] Condition: Stable [facility] Diagnosis - Elevated blood-pressure reading, without diagnosis of hypertension [facility] Followup: [facility] - With: Private Physician - When: 2 - 3 days - Reason: Recheck today's complaints, Continuance of care, Re-evaluation by your physician Discharge Instructions: - Discharge Summary Sheet [facility] - Hypertension, Adult jm - DASH Eating Plan [facility] Forms: - Medication Reconciliation Form [facility] - Thank You Letter [facility] - Antibiotic Education jmm - Prescription Opioid Use [facility] Prescriptions: - Hydrochlorothiazide 12.5 mg Oral Tablet - take 1 tablet by ORAL route once daily; 30 tablet; Refills: 0, Product jmm Selection Permitted Signatures: Dispatcher [employer] Camron Zapien PA PA jmm Williams, Irene, RN RN iw Nir Harris MD MD rn
[2022-02-20 16:08] VITALS: TEMP 97.4; O2SAT 99
[2022-02-20 16:10] VITALS: BP 156/105
--- NOTE | 2022-02-21 09:34 | EKG ---
Test Date: 2022-02-20 Test Time: 12:44:35 Company Doctor: ALDAIR MEASUREMENT RESULTS: Intervals: Rate: 90 OH: 146 QRSD: 90 QT: 366 QTc: 447 [place]: P: 58 OH: 146 QRS: 45 T: 17 INTERPRETIVE STATEMENTS: Normal sinus rhythm Septal infarct, age undetermined Abnormal ECG Compared to ECG 11/07/2021 11:16:30 Sinus tachycardia no longer present Myocardial infarct finding still present Electronically Signed On 02-21-22 09:31:58 CDT by Darrell Prakash
== END 2022-02-20 14:57 | disposition home or self-care (01) ==
LOC: ER 11:39
DX: R03.0 Elevated blood-pressure reading, without diagnosis of hypertension (principal)
CPT/HCPCS: 36415; 80048; 84484; 85025; 93005; 96374; 99283; J0360